=== PATIENT | male | born 1965 | race Caucasian/White ===

== ENCOUNTER 2018-09-04 16:49 | Emergency (ER) | payer OTHER ==
--- NOTE | 2018-09-04 17:43 | CPEKG ---
Test Reason : OPEN Blood Pressure : / mmHG Vent. Rate : 046 BPM Atrial Rate : 046 BPM P-R Int : 165 ms QRS Dur : 102 ms QT Int : 427 ms P-R-T Axes : 044 006 014 degrees QTc Int : 374 ms Sinus bradycardia Minimal ST depression, inferior leads Confirmed by Gaurang Kerr ([id number]) on 09/04/2018 5:42:41 PM Referred By: GAURANG KERR Confirmed By:Gaurang Kerr
--- NOTE | 2018-09-04 18:11 | EDPHY ---
H & P Stated Complaint: cp Time Seen by Provider: 09/04/18 17:08 HPI/ROS: Chief complaint: Chest discomfort History of present illness: This is a 53-year-old male who presents to the emergency department for chest pain. He reports the onset of symptoms earlier today, approximately an hour and a half ago. He describes primarily a pressure- like pain with an aspect of sharpness to it. The pain did radiate up into his jaw. He denies specific precipitating factors, he was just sitting at work when it occurred. Symptoms resolved on their own. He is currently asymptomatic. He did take 162 mg of aspirin prior to arrival. He states he has had similar pain on and off for the last month, is never lasted this long. He denies associated signs or symptoms including no fevers, chills or cold symptoms, no dyspnea, no pleuritic type character to it, no pain or swelling in the legs. Review of systems: A 10 point review of systems was obtained and other than described above was negative - Personal History Current Tetanus/Diphtheria Vaccine: Yes Current Tetanus Diphtheria and Acellular Pertussis (TDAP): Yes - Medical/Surgical History Hx Asthma: No Hx Chronic Respiratory Disease: No Hx Diabetes: No Hx Cardiac Disease: No Hx Renal Disease: No Hx Cirrhosis: No Hx Alcoholism: No Hx HIV/AIDS: No Hx Splenectomy or Spleen Trauma: No Other PMH: tremor - Family History Significant Family History: Heart disease - Social History Smoking Status: Never smoked - Physical Exam Exam: General Appearance: Alert, nontoxic. Eyes: Pupils equal and round no pallor or injection. ENT, Mouth: Mucous membranes moist. Respiratory: There are no retractions, lungs are clear to auscultation. Cardiovascular: Regular rate and rhythm. Gastrointestinal: Abdomen is soft and non tender, no masses, bowel sounds normal. Neurological: Alert and oriented x4. Strength and sensation intact and symmetrical. Skin: Warm and dry, no rashes. Musculoskeletal: Neck is supple non tender. Extremities are symmetrical, full range of motion. Psychiatric: Patient is oriented X 3, there is no agitation. Constitutional: Initial Vital Signs Temperature (C) 36.6 C 09/04/18 16:57 Heart Rate 57 L 09/04/18 16:57 Respiratory Rate 16 09/04/18 16:57 Blood Pressure 127/69 H 09/04/18 16:57 O2 Sat (%) 98 09/04/18 16:57 O2 Delivery Mode Room Air Allergies/Adverse Reactions: No Known Allergies Allergy (Unverified 09/04/18 16:56) Home Medications: Medication Instructions Recorded Atenolol 09/04/18 Medical Decision Making - Diagnostics Imaging Results: Imaging Impressions Chest X-Ray 09/04/18 17:17 Impression: No acute findings in the chest. Imaging: I viewed and interpreted images myself ED Course/Re-evaluation: Patient is discussed with my secondary supervising physician Dr. Smooth Ramey. Patient presents to the emergency department reporting chest pain and dizziness earlier today. He has had similar symptoms on and off for number of months. On my evaluation he is asymptomatic. Vital signs show bradycardia although he is on atenolol for an intention tremor. Evaluation is unremarkable. Serial troponins remained negative. Patient does appear to have a low heart score. I did offer admission to the hospital, he declined. I have asked him to follow up with his primary care doctor to discuss the use of atenolol. In addition I have referred him to Cardiology for a stress test. Home care is discussed. He is given strict return precautions. The patient voiced understanding and agreement with plan. Differential Diagnosis: Included but not limited to angina, ACS, cardiac dysrhythmia including symptomatic bradycardia, reflux, pulmonary infections, anxiety - Data Points Laboratory Results: Laboratory Results 09/04/18 17:51 09/04/18 17:51 09/04/18 09/04/18 09/04/18 20:19 17:56 17:51 WBC RBC Hgb Hct MCV MCH MCHC RDW Plt Count MPV Neut % (Auto) Lymph % (Auto) Scurry % (Auto) Eos % (Auto) Baso % (Auto) Nucleat RBC Rel Count Absolute Neuts (auto) Absolute Lymphs (auto) Absolute Monos (auto) Absolute Eos (auto) Absolute Basos (auto) Absolute Nucleated RBC Immature Gran % Immature Gran # Sodium 137 mEq/L mEq/L (135-145) Potassium 4.4 mEq/L mEq/L (3.5-5.2) Chloride 103 mEq/L mEq/L (97-110) Carbon Dioxide 24 mEq/l mEq/l (22-31) Anion Gap 10 mEq/L mEq/L (6-14) BUN 18 mg/dL mg/dL (7-23) Creatinine 0.8 mg/dL mg/dL (0.7-1.3) Estimated GFR > 60 Glucose 91 mg/dL mg/dL (70-100) Calcium 9.8 mg/dL mg/dL (8.5-10.4) POC Troponin I 0.01 ng/mL ng/mL 0.01 ng/mL ng/mL (0.00-0.08) (0.00-0.08) 09/04/18 17:51 WBC 4.72 10^3/uL 10^3/uL (3.80-9.50) RBC 4.69 10^6/uL 10^6/uL (4.40-6.38) Hgb 14.0 g/dL g/dL (13.7-17.5) Hct 39.2 % L % (40.0-51.0) MCV 83.6 fL fL (81.5-99.8) MCH 29.9 pg pg (27.9-34.1) MCHC 35.7 g/dL g/dL (32.4-36.7) RDW 12.4 % % (11.5-15.2) Plt Count 181 10^3/uL 10^3/uL (150-400) MPV 10.6 fL fL (8.7-11.7) Neut % (Auto) 55.5 % % (39.3-74.2) Lymph % (Auto) 35.8 % % (15.0-45.0) Scurry % (Auto) 6.8 % % (4.5-13.0) Eos % (Auto) 1.3 % % (0.6-7.6) Baso % (Auto) 0.6 % % (0.3-1.7) Nucleat RBC Rel Count 0.0 % % (0.0-0.2) Absolute Neuts (auto) 2.62 10^3/uL 10^3/uL (1.70-6.50) Absolute Lymphs (auto) 1.69 10^3/uL 10^3/uL (1.00-3.00) Absolute Monos (auto) 0.32 10^3/uL 10^3/uL (0.30-0.80) Absolute Eos (auto) 0.06 10^3/uL 10^3/uL (0.03-0.40) Absolute Basos (auto) 0.03 10^3/uL 10^3/uL (0.02-0.10) Absolute Nucleated RBC 0.00 10^3/uL 10^3/uL (0-0.01) Immature Gran % 0.0 % % (0.0-1.1) Immature Gran # 0.00 10^3/uL 10^3/uL (0.00-0.10) Sodium Potassium Chloride Carbon Dioxide Anion Gap BUN Creatinine Estimated GFR Glucose Calcium POC Troponin I Point of Care Test Results: Chemistry 09/04/18 09/04/18 20:19 17:56 POC Troponin I 0.01 ng/mL ng/mL 0.01 ng/mL ng/mL (0.00-0.08) (0.00-0.08) Departure - Departure Disposition: Home, Routine, Self-Care Clinical Impression: Dizziness Chest pain Qualifiers: Chest pain type: unspecified Qualified Code(s): R07.9 - Chest pain, unspecified Condition: Good Instructions: Chest Pain (ED), Dizziness (ED) Additional Instructions: Please call and arrange follow-up with both her primary care doctor and a timekeeper tomorrow We recommend talking with your primary care doctor about discontinuing the atenolol for your tremor and finding and other medication is her heart rate is low If symptoms return or new symptoms develop please return immediately to the emergency room Referrals: NONE *PRIMARY CARE P,. [Primary Care Provider] - As per Instructions Panchito Guillermo MD [Medical Doctor] - As per Instructions Lola Dumont MD [Medical Doctor] - As per Instructions
[2018-09-04 18:33] LABS: PLATELET COUNT 181 10^3/uL (150-400)
[2018-09-04 21:02] VITALS: BP 120/74
== END 2018-09-04 21:00 | disposition home or self-care (01) ==
DX: R07.9 Chest pain, unspecified (principal); R42 Dizziness and giddiness
CPT/HCPCS: 84484-ER